=== PATIENT | female | born 1950 | race Caucasian/White ===

== ENCOUNTER → 2017-02-27 | Outpatient (CLI) | payer OTHER, MEDICARE ==
[~2017-02-27] MED LIST: LEVO125T7 PO; LSN25 PO; SIMV20TA2 PO
[2017-02-27 13:09] LABS: HEMATOCRIT 40.8 % (37-47); MEAN CELL VOLUME 87.2 fL (80-100); MEAN CORPUSCULAR HEMOGLOBIN 29.3 pg (25-34); MEAN CORPUSCULAR HGB CONC 33.6 g/dl (32-36); MEAN PLATELET VOLUME 13.1 fL (7.4-10.4); PLATELET COUNT 315 K/uL (130-400); RED BLOOD COUNT 4.68 M/uL (4.2-5.4)
[2017-02-27 13:26] LABS: URINE APPEARANCE CLEAR (CLEAR); URINE BILIRUBIN NEG (NEG); URINE COLOR YELLOW; URINE EPITHELIAL CELL AUTO >30 /lpf (0-5); URINE NITRITE NEG (NEG); URINE PH 7.5 (4.5-7.5); URINE SPECIFIC GRAVITY 1.008 (1.000-1.030); UROBILINOGEN NEG (NEG)
[2017-02-27 13:40] LABS: URINE PROTIEN/CREAT RATIO 0.4 (0-0.2); URINE TOTAL PROTEIN 6.5 mg/dl (0-11.9)
[2017-02-27 13:41] LABS: MANUAL MICROSCOPIC REQUIRED? NO; REVIEW REQ? NO
[2017-02-27 13:43] LABS: BLOOD UREA NITROGEN 17 mg/dl (7-18); BUN/CREATININE RATIO 18.1 (10-20); CALCIUM 9.3 mg/dl (8.5-10.1); CARBON DIOXIDE 28 mmol/L (21-32); CHLORIDE 104 mmol/L (98-107); CREATININE 0.93 mg/dl (0.60-1.20); GLUCOSE 90 mg/dl (70-99); SODIUM 140 mmol/L (136-145)
[2017-02-27 13:44] LABS: PHOSPHORUS 3.9 mg/dl (2.5-4.9)
== END | disposition home or self-care (01) ==
LOC: C.LAB 11:45
PROVIDERS: ATTEND Internal Medicine Nephrology
DX: R80.9 Proteinuria, unspecified (principal); E55.9 Vitamin D deficiency, unspecified; N18.2 Chronic kidney disease, stage 2 (mild); N05.2 Unspecified nephritic syndrome with diffuse membranous glomerulonephritis

== ENCOUNTER → 2017-05-21 | Outpatient (CLI) | payer OTHER, MEDICARE | END | disposition home or self-care (01) | LOC: C.LAB 09:36 | PROVIDERS: ATTEND Family Medicine | DX: E03.4 Atrophy of thyroid (acquired) (principal) ==

== ENCOUNTER → 2017-07-10 | Outpatient (CLI) | payer OTHER, MEDICARE ==
[2017-07-10 12:58] LABS: THYROID STIMULATING HORMONE 0.015 uIu/ml (0.300-4.500)
== END | disposition home or self-care (01) ==
LOC: C.LAB 10:07
PROVIDERS: ATTEND Family Medicine
DX: E03.4 Atrophy of thyroid (acquired) (principal)

== ENCOUNTER → 2017-09-03 | Outpatient (CLI) | payer OTHER, MEDICARE ==
[2017-09-03 14:42] LABS: HEMATOCRIT 41.2 % (37-47); MEAN CELL VOLUME 88.8 fL (80-100); MEAN CORPUSCULAR HEMOGLOBIN 29.5 pg (25-34); MEAN CORPUSCULAR HGB CONC 33.3 g/dl (32-36); MEAN PLATELET VOLUME 13.4 fL (7.4-10.4); PLATELET COUNT 292 K/uL (130-400); RED BLOOD COUNT 4.64 M/uL (4.2-5.4)
[2017-09-03 15:07] LABS: MANUAL MICROSCOPIC REQUIRED? NO; REVIEW REQ? NO; URINE APPEARANCE CLEAR (CLEAR); URINE BILIRUBIN NEG (NEG); URINE COLOR YELLOW; URINE NITRITE NEG (NEG); UROBILINOGEN NEG (NEG)
[2017-09-03 15:08] LABS: BLOOD UREA NITROGEN 14 mg/dl (7-18); BUN/CREATININE RATIO 14.8 (10-20); CALCIUM 9.6 mg/dl (8.5-10.1); CARBON DIOXIDE 30 mmol/L (21-32); CHLORIDE 101 mmol/L (98-107); CREATININE 0.96 mg/dl (0.60-1.20); GLUCOSE 84 mg/dl (70-99); POTASSIUM 3.7 mmol/L (3.5-5.1); SODIUM 136 mmol/L (136-145)
[2017-09-03 15:14] LABS: CREATININE, URINE < 13.0 mg/dl; URINE TOTAL PROTEIN < 5.0 mg/dl (0-11.9)
[2017-09-03 15:18] LABS: PHOSPHORUS 3.2 mg/dl (2.5-4.9); THYROID STIMULATING HORMONE 0.427 uIu/ml (0.300-4.500)
== END | disposition home or self-care (01) ==
LOC: C.LAB 12:46
PROVIDERS: ATTEND Family Medicine
DX: E03.4 Atrophy of thyroid (acquired) (principal); R80.9 Proteinuria, unspecified; N05.2 Unspecified nephritic syndrome with diffuse membranous glomerulonephritis; N18.2 Chronic kidney disease, stage 2 (mild); R31.29 Other microscopic hematuria; E55.9 Vitamin D deficiency, unspecified